=== PATIENT | male | born 1980 | race Caucasian/White ===

== ENCOUNTER 2019-07-15 21:49 | Emergency (ER) | payer MEDICAID ==
[~2019-07-15] VITALS: Ht 172.7 cm; Wt 112.0 kg
[~2019-07-15 21:49] MED LIST: APAP/HYDROCODON1 T13 PO; CIPRO500 MG PO; FLA500 PO; LAC PO
[2019-07-15 21:55] VITALS: Ht 172.7 cm; Wt 112.0 kg
[2019-07-15 23:33] LABS: BASOPHIL % 0.5 % (0-2); PLATELET COUNT 263 x10^3mcL (130-400); RED CELL DISTRIBUTION WIDTH 14.5 % (11.5-14.5)
[2019-07-15 23:44] LABS: CALCIUM 8.8 mg/dL (8.5-10.1); CHLORIDE SERUM 104 mmol/L (98-107); CREATININE SERUM 0.8 mg/dL (0.7-1.3); GFR1 > 60 mL/min; GLUCOSE SERUM 86 mg/dL (74-106); SODIUM SERUM 141 mmol/L (136-145)
[2019-07-15 23:49] LABS: ALKALINE PHOSPHATASE 80 U/L (46-116); ALT/SGPT 30 U/L (16-63); AST/SGOT 18 U/L (15-37); BILIRUBIN TOTAL 0.54 mg/dL (0.20-1.00); TOTAL PROTEIN, SERUM 7.4 g/dL (6.4-8.2)
[2019-07-15 23:55] LABS: ALBUMIN 3.3 g/dL (3.4-5.0)
[2019-07-16 00:41] VITALS: BP 134/55
== END 2019-07-16 00:41 | disposition home or self-care (01) ==
LOC: ED 21:49
PROVIDERS: Emergency Medicine
DX: K57.92 Diverticulitis of intestine, part unspecified, without perforation or abscess without bleeding (principal); I10 Essential (primary) hypertension
CPT/HCPCS: 36415